=== PATIENT | female | born 1975 | race Caucasian/White ===

== ENCOUNTER → 2016-11-11 | Outpatient (CLI) | payer BC ==
[~2016-11-11] MED LIST: ASPCH81; ATOR-22 PO; EYED OPB; MISCCAP80 PO; MULT-506 PO; OMEG10007 PO; PRLSR20 PO; VITAMIN B12 PO
== END | disposition home or self-care (01) ==
LOC: C.PAPS 14:09
PROVIDERS: ATTEND Obstetrics & Gynecology
DX: Z01.419 Encounter for gynecological examination (general) (routine) without abnormal findings (principal)

== ENCOUNTER → 2016-11-23 | Outpatient (CLI) | payer BC ==
[~2016-11-23] MED LIST changes: -ATOR-22 PO; -EYED OPB; -MISCCAP80 PO; -OMEG10007 PO; -VITAMIN B12 PO
== END | disposition home or self-care (01) ==
LOC: C.PATHSPEC 16:38
PROVIDERS: ATTEND Obstetrics & Gynecology
DX: N90.89 Other specified noninflammatory disorders of vulva and perineum (principal)

== ENCOUNTER → 2017-01-25 | Outpatient (CLI) | payer BC ==
[~2017-01-25] MED LIST changes: +ATOR-22 PO; +EYED OPB; +MISCCAP80 PO; +OMEG10007 PO; +VITAMIN B12 PO
--- NOTE | 2017-01-26 14:19 | MAMMOGRAPHY REPORT ---
BILATERAL DIGITAL SCREENING MAMMOGRAM TOMOSYNTHESIS WITH CAD: 01/25/2017 CLINICAL HISTORY: Routine screening. Patient has no complaints. TECHNIQUE: Breast tomosynthesis in addition to standard 2D mammography was performed. Current study was also evaluated with a Computer Aided Detection (CAD) system. COMPARISON: Comparison is made to exam dated: 01/22/2016 mammogram - [facility]. BREAST COMPOSITION: There are scattered areas of fibroglandular density in both breasts. FINDINGS: There is a newly visualized 5 mm mass in the lateral anterior right breast, only seen on t he CC view. Although it could represent a cyst, definitive characterization with targeted ultrasound and possible additional mammographic views is recommended. No other new suspicious mass, architectural distortion or cluster of microcalcifications is seen bila terally. IMPRESSION: ACR BI-RADS CATEGORY 0: INCOMPLETE EVALUATION: NEED ADDITIONAL IMAGING EVALUATION The newly visualized 5 mm mass in the lateral right breast needs additional evaluation. The patient will be called to schedule an appointment. Approximately 10% of breast cancers are not detected with mammography. A negative mammographic report should not delay biopsy if a clinically suggestive mass is present. Abi Valdez M.D. ay/:01/25/2017 17:28:14 Log Peeler: Juliana MELARA)(Annie), [facility] letter sent: Addl Imaging 0 BI-RADS Code: ACR BI-RADS Category 0: Incomplete Evaluation: Need Additional Imaging Evaluation
== END | disposition home or self-care (01) ==
LOC: C.MAMM 09:05
PROVIDERS: ATTEND Obstetrics & Gynecology
DX: Z12.31 Encounter for screening mammogram for malignant neoplasm of breast (principal); N63 Unspecified lump in breast

== ENCOUNTER → 2017-02-01 | Outpatient (CLI) | payer BC ==
[2017-02-01 17:44] LABS: BASO % 0.4 %; BASO ABS # 0.02 K/uL (0-0.2); COMPLETE YES; EOS % 3.3 %; HEMATOCRIT 41.1 % (37-47); IG% 0.2 %; LYMPH % 19.4 %; LYMPH ABS # 0.88 K/uL (1.2-3.4); MEAN CELL VOLUME 89.5 fL (80-100); MEAN CORPUSCULAR HEMOGLOBIN 30.1 pg (25-34); MEAN CORPUSCULAR HGB CONC 33.6 g/dl (32-36); MEAN PLATELET VOLUME 10.2 fL (7.4-10.4); MONO % 7.9 %; NEUT % 68.8 %; PLATELET COUNT 211 K/uL (130-400); RED BLOOD COUNT 4.59 M/uL (4.2-5.4); WHITE BLOOD COUNT 4.54 K/uL (4.8-10.8)
[2017-02-01 18:13] LABS: ALT/SGPT 30 U/L (12-78); AST/SGOT 18 U/L (15-37); BLOOD UREA NITROGEN 11 mg/dl (7-18); BUN/CREATININE RATIO 18.7 (10-20); CALCIUM 8.9 mg/dl (8.5-10.1); CARBON DIOXIDE 27 mmol/L (21-32); CHLORIDE 106 mmol/L (98-107); CREATININE 0.58 mg/dl (0.60-1.20); GLUCOSE 94 mg/dl (70-99); POTASSIUM 3.7 mmol/L (3.5-5.1); SODIUM 139 mmol/L (136-145)
[2017-02-01 18:16] LABS: ALB/GLOB RATIO 1.1 (0.9-2); ALKALINE PHOSPHATASE 53 U/L (45-117)
[2017-02-01 19:28] LABS: LYME DISEASE AB IGG NEG (NEG); LYME DISEASE AB IGM NEG (NEG)
== END | disposition home or self-care (01) ==
LOC: C.LABBFT 11:55
PROVIDERS: ATTEND Internal Medicine
DX: R50.9 Fever, unspecified (principal); R21 Rash and other nonspecific skin eruption

== ENCOUNTER → 2017-02-02 | Outpatient (CLI) | payer BC ==
--- NOTE | 2017-02-02 12:56 | Discharge Instructions ---
Discharge Instructions Procedure Procedure Date: Feb 02, 2017. Reason for visit: Right Mass. Discharge Discharge Date: Feb 02, 2017. Discharge Diagnosis: status post breast biopsy Instructions Activity Recommendations: Additional Limitations (see below) Return to School/Work: no limitations Recommended Home Diet: No Limitations Provider Instructions: ACTIVITY RECOMMENDATIONS: * No lifting, pushing, pulling or exercising the affected side for three days. RETURN TO SCHOOL/WORK: * You may return to work/school after the procedure, but do not perform any strenuous activities for 24 to 48 hours. MEDICATIONS: * Tylenol (two 325 mg) every four to six hours if needed for mild pain (if not allergic to Tylenol). DIET: * Resume previous diet. SPECIAL CARE INSTRUCTIONS: * Keep biopsy site dry for 24 hours. May shower after 24 hours, but do not soak (bathe) incision. * May remove Tegaderm (plastic patch) tomorrow AFTER showering. * Leave the steri-strips on for one week. Allow the steri-strips to fall off by themselves. If not off after one week, you may remove them. You may place a Bandaid crosswise over the strips, if desired. * Apply ice 10 minutes on and 10 minutes off as needed. * Wear a bra at bedtime to sleep more comfortably for 2-3 days. * Your referring physician should have the results after approximately 5 to 7 business days. * Call for unusual bleeding, fever, drainage, etc or if you have any questions call during normal business hours or after hours call Dr Parra, [phone]. FOLLOW UP VISIT: Follow-up with Referring Physician as scheduled. Allergies Coded Allergies: Iodinated Contrast Media (Verified Allergy, Unknown, SWELLING AROUND EYES , 02/12/15) Kristina Beltran Recommendations: Call your doctor if: * Temperature above 101 degrees * Pain not relieved by pain medicine ordered * There is increased drainage or redness from any incision * You have any unanswered questions or concerns. Your Doctors Instructions noted above were prepared by provider Lisette Parra. Patient Signature Section: Patient Instructions Signature Page Dayana Newton Patient (or Guardian) Signature/Date: I have read and understand the instructions given to me by my caregivers. Caregiver/RN/Doctor Signature/Date: The above-named patient and/or guardian has received patient instructions on this date. + Original Patient Signature Page (only) stays with chart. Please make copy for patient.
--- NOTE | 2017-02-02 15:18 | MAMMOGRAPHY REPORT ---
UNILATERAL RIGHT DIGITAL DIAGNOSTIC MAMMOGRAM TOMOSYNTHESIS: 02/02/2017 CLINICAL HISTORY: Status post ultrasound guided biopsy of a right 9:00 breast mass. TECHNIQUE: Breast tomosynthesis in addition to standard 2D mammography was performed. Postprocedura l right CC and ML views were obtained. COMPARISON: Comparison is made to exams dated: 02/02/2017 ultrasound, 01/25/2017 mammogram, and 01/22/20 16 mammogram - [facility]. BREAST COMPOSITION: There are scattered areas of fibroglandular density in the right breast. FINDINGS: A new biopsy marker clip is seen at the site of the biopsied mass in the right lateral louis ast at approximately 9:00. No significant postbiopsy hematoma is seen. IMPRESSION: POST PROCEDURE IMAGING FOR MARKER PLACEMENT New biopsy marker clip status post right breast ultrasound-guided biopsy. Pathology results are pend ing. Approximately 10% of breast cancers are not detected with mammography. A negative mammographic report should not delay biopsy if a clinically suggestive mass is present. Lisette Parra M.D. ah/:02/02/2017 13:03:39 Document Control Coordinator: Juliana MOJICA(R)(M), [facility] BI-RADS Code: Post Procedure Imaging For Marker Placement
--- NOTE | 2017-02-02 15:18 | MAMMOGRAPHY REPORT ---
THIS REPORT HAS BEEN AMENDED. ULTRASOUND GUIDED BIOPSY RIGHT BREAST: 02/02/2017 CLINICAL HISTORY: Right 9 o'clock breast mass. PATIENT CONSENT: The procedure, risks and benefits were discussed with the patient and informed writt en consent was obtained. A timeout was performed immediately prior to the procedure. PROCEDURE DESCRIPTION: With ultrasound guidance, aseptic technique, and lidocaine as the local anesth etic (1% lidocaine to anesthetize the skin and 1% lidocaine with epinephrine to anesthetize the deepe r tissues), the mass of concern in the right 9:00 breast was sampled 3 times with a 14-gauge Achieve biopsy needle. Immediately thereafter, with ultrasound guidance, aseptic technique, and lidocaine as the local anesthetic, a metallic localizer clip was placed at the biopsy site. Direct pressure was applied to the site immediately post procedure and hemostasis was achieved. Postprocedure unilateral mammograms were performed to confirm placement of the clip in the expected location of the breast ma ss. The patient tolerated the procedure without complication. She was given wound care instructions . The specimens were sent to pathology for analysis. COMPARISON: Comparison is made to exams dated: 02/02/2017 ultrasound, 01/25/2017 mammogram, and 01/22/20 16 mammogram - [facility]. IMPRESSION: ULTRASOUND GUIDED BIOPSY Ultrasound guided core needle biopsy of the right 9:00 breast mass, with clip placement. The patient will receive pathology results from her referring provider. Lisette Parra M.D. ah/:02/02/2017 12:58:55 Synthetic Filament Extruder: Juliana MELARA)(Annie), [facility] AMENDMENT: 02/09/2017 Lisette Parra M.D. Pathology results from ultrasound-guided biopsy of a right 9:00 breast mass were reviewed on 7. 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 As it is controversial whether papillomas without atypia should be excised, recommend surgic al consultation for further evaluation.
== END | disposition home or self-care (01) ==
LOC: C.MAMM 12:30
PROVIDERS: ATTEND Obstetrics & Gynecology
DX: N63 Unspecified lump in breast (principal); D24.1 Benign neoplasm of right breast

== ENCOUNTER → 2017-02-02 | Outpatient (CLI) | payer BC ==
--- NOTE | 2017-02-08 09:07 | MAMMOGRAPHY REPORT ---
ULTRASOUND OF RIGHT BREAST: 02/02/2017 CLINICAL HISTORY: 41-year-old woman called back from screening mammography for a newly visualized non -circumscribed 5 mm mass in the lateral anterior right breast. COMPARISON: Comparison is made to exams dated: 01/22/2016 mammogram and 01/25/2017 mammogram - [facility]. FINDINGS: Targeted ultrasound was performed in the lateral right breast. In the 9:00 to 9:30 axis, 1 cm from the nipple, there is a mixed hypoechoic and anechoic solid and cystic but predominantly cys tic mass measuring 5.3 x 3.3 x 5.0 mm.. Mild internal blood flow is detected. Although this most li lauren represents a microcyst cluster or, located cyst, definitive characterization with tissue samplin g is recommended to exclude a papillary lesion. This mass correlates well with the newly visualized mammographic mass in size, shape and location. IMPRESSION: ACR BI-RADS CATEGORY 4: SUSPICIOUS - FOLLOW-UP RECOMMENDED Ultrasound-guided core biopsy is recommended for a mixed solid and cystic 5.3 mm mass in the 9:00 rig ht breast, thought to correlate with the newly visualized mammographic mass. These results and recommendations were discussed with the patient at the time of the exam. She tenta tively scheduled the biopsy prior to leaving our department. Abi Valdez M.D. ay/:02/02/2017 11:00:33 Electronic Publishing Specialist: Dr. Abi Valdez, [facility] letter sent: Abnormal 4/5 BI-RADS Code: ACR BI-RADS Category 4: Suspicious
== END | disposition home or self-care (01) ==
LOC: C.MAMM 09:12
PROVIDERS: ATTEND Obstetrics & Gynecology
DX: N63 Unspecified lump in breast (principal)

== ENCOUNTER → 2017-03-01 | Day surgery (SDC) | payer BC ==
[2017-02-22 09:15] VITALS: Ht 167.6 cm; Wt 84.1 kg
[~2017-03-01] VITALS: Ht 167.6 cm; Wt 84.1 kg
[~2017-03-01] MED LIST changes: -ASPCH81; +ATROPINE SULFATE 0.1 MG/ML 5ML SYR IV PRN; +CEFAZOLIN 2000 MG/60 ML D5W IV SCH; +DEXAMETHASONE SOD INJ 4 MG/ML VIAL ONE; +EpHEDrine SULFATE INJ 50 MG/ML AMP IV PRN; +FENTANYL CITRATE INJ 50 MCG/1 ML 2 ML VIAL IV PRN; +FENTANYL CITRATE INJ 50 MCG/1 ML 2 ML VIAL ONE; +GLYCOPYRROLATE INJ 0.2 MG/ML VIAL ONE; +HYDR-5688 PO; +HYDROCODONE/ACETAMOPHEN 5/325MG TAB PO PRN; +LACTATED RINGER'S 1000ML 1,000 ML IV SCH; +LIDOCAINE HCL 1% 20 ML VIAL ONE; +LIDOCAINE HCL 2% 2 ML VIAL (20MG/ML) ONE; +MIDAZOLAM HCL 1 MG/ML 2ML VIAL ONE; +ONDANSETRON INJ 2 MG/ML 2 ML VIAL IV PRN; +ONDANSETRON INJ 2 MG/ML 2 ML VIAL ONE; -PRLSR20 PO; +PROPOFOL IV EMULSION 10 MG/ML 20 ML VIAL IV ONE; +SODIUM CHLORIDE 0.9% 1000ML 1,000 ML IV SCH
--- NOTE | 2017-03-01 11:52 | History & Physical Bridge Note ---
H&P Re-Evaluation Bridge Note: I have examined the patient, reviewed the History & Physical and in the interval since the performance of the History & Physical I have noted the following changes of clinical significance: No changes noted
--- NOTE | 2017-03-01 12:50 | [facility] Operative Report ---
Operative Report Operative Date Mar 01, 2017. Pre-Operative Diagnosis Right breast papilloma Post-Operative Diagnosis Same as preop Procedure(s) Performed Right Breast Papilloma Excision With Needle Localization Surgeon Dr. Chiu Mine Environmental Engineer Surgeon(s) Wilbert Tijerina PA-C Estimated Blood Loss 5 mL Findings Rt brreast tissue with clip Specimens A: Right breast papilloma Anesthesia gen/LMA Complication(s) None Disposition Recovery Room / PACU I attest to the content of the Intraoperative Record and any orders documented therein. Any exceptions are noted below.
--- NOTE | 2017-03-01 12:54 | Discharge Instructions-SurgCtr ---
Discharge Instructions Date of Service Mar 01, 2017. Visit Reason for Visit: Right Breast Papilloma Discharge Discharge Diagnosis / Problem: papilloma Rt breast Discharge Goals Goal(s): Decrease discomfort, Improve function, Improve disease control Activity Recommendations Activity Limitations: as noted below Lifting Limitations: no more than 25 pounds, gradually increase as tolerated Exercise/Sports Limitations: until after follow-up appointment May Resume Sexual Activity: when tolerated Shower/Bathe: keep incision dry (may shower over incision in 2 days- 03/03 ) Driving or Machine Use: resume 1 day after discharge SPECIAL CARE INSTRUCTIONS: * Cover incisions and change daily for comfort/drainage. * Leave steri strips in place * May use ibuprofen for pain as tolerated. * Expect some swelling and bruising. Call your doctor if: * Temperature above 101 degrees * Pain not relieved by pain medicine ordered * There is increased drainage or redness from any incision * You have any unanswered questions or concerns [phone]. FOLLOW UP VISIT: If not already scheduled, please call the office for a follow-up visit. for 2 weeks- no sutures to remove OFFICE PHONE NUMBER: Dr. Chiu Office Anesthesia . Post Anesthesia Instructions: If you have had General Anesthesia or IV Sedation: * Do not drive today. * Resume driving when surgeon permits. * Do not make important decisions or sign legal documents today. * Call surgeon for: 1. Temperature elevations greater than 101 degrees F. 2. Uncontrollable pain. 3. Excessive bleeding. 4. Persistent nausea and vomiting. 5. Medication intolerance (nausea, vomiting or rash). * For nausea and vomiting use only clear liquids such as: tea, soda, bouillon until nausea subsides, then gradually increase diet as tolerated. * If you have any concerns or questions, call your surgeon's office. If physician is unavailable and it is an emergency, call 911 or go to the nearest emergency room. . Diet Recommendations Home Diet: resume previous diet Procedures Procedures Performed: Right Breast Papilloma Excision With Needle Localization Pending Studies Studies pending at discharge: no Medical Emergencies . Who to Call and When: Medical Emergencies: If at any time you feel your situation is an emergency, please call 911 immediately. . Non-Emergent Contact Non-Emergency issues call your: Primary Care Provider, Surgeon . . "Provider Documentation" section prepared by Hebert Chiu. .
--- NOTE | 2017-03-01 13:05 | OPERATIVE REPORT ---
DATE OF OPERATION: 03/01/2017 NAME OF OPERATION: Needle localization and excision of right breast papilloma. PREOPERATIVE DIAGNOSIS: Right breast papilloma. POSTOPERATIVE DIAGNOSIS: Same. STAFF SURGEON: Dr. Chiu. PUBLIC HEALTH DOCTOR: Wilbert Tijerina PA-C. ANESTHESIA: General LMA with 1% plain lidocaine. PROCEDURE: The patient was brought in the operating room and placed on the operating table in supine position. A needle was placed at approximately 10:00 laterally in the right breast. Skin and subcutaneous tissue were anesthetized using 1% plain lidocaine. Incision made at the needle and medially carrying dissection down around the needle excising the tissue sending it for mammography. A clip was within this tissue. Deep tissue was reapproximated using 2-0 plain catgut suture then the skin reapproximated using subcuticular 5-0 Monocryl with Steri-Strips. Dressing applied and patient transferred to recovery room in stable condition. I attest to the content of the Intraoperative Record and any orders documented therein. Any exception s are noted below.
[2017-03-01 13:40] VITALS: TEMP 36.4
[2017-03-01 13:56] VITALS: BP 116/77; PULSE 57; O2SAT 100
--- NOTE | 2017-03-01 14:04 | Anesthesiology Progress Note ---
Anesthesia Post Op Note Date & Time Mar 01, 2017 at 14:04 Vital Signs Pain Intensity: 1 Vital Signs Past 12 Hours Date Time Temp Pulse Resp B/P (MAP) Pulse Ox O2 Delivery O2 Flow Rate FiO2 03/01/17 13:56 57 16 116/77 (90) 100 Room Air 03/01/17 13:40 36.4 59 16 115/85 (95) 100 Room Air 03/01/17 13:30 120/78 03/01/17 13:28 36.7 46 14 120/78 100 Room Air 03/01/17 13:27 50 21 100 03/01/17 13:27 49 21 03/01/17 13:25 122/76 03/01/17 13:22 50 18 03/01/17 13:22 52 18 100 03/01/17 13:20 114/83 03/01/17 13:17 52 13 03/01/17 13:17 50 13 100 03/01/17 13:15 118/86 03/01/17 13:12 49 14 03/01/17 13:12 48 14 100 03/01/17 13:10 118/72 03/01/17 13:07 62 14 100 03/01/17 13:07 56 14 03/01/17 13:05 117/67 03/01/17 13:02 54 22 100 03/01/17 13:02 56 22 03/01/17 13:00 112/63 03/01/17 12:58 126/66 03/01/17 12:57 59 100 03/01/17 12:57 36.4 56 12 126/66 100 Mask 6 03/01/17 12:57 59 03/01/17 10:40 37.0 61 16 133/81 (98) 100 Room Air Notes Mental Status: alert / awake / arousable, participated in evaluation Pt Amnestic to Procedure: Yes Nausea / Vomiting: adequately controlled Pain: adequately controlled Airway Patency, RR, SpO2: stable & adequate BP & HR: stable & adequate Hydration State: stable & adequate Anesthetic Complications: no major complications apparent
--- NOTE | 2017-03-01 15:20 | MAMMOGRAPHY REPORT ---
NEEDLE LOCALIZATION RIGHT BREAST: 03/01/2017 CLINICAL HISTORY: Biopsy-proven papilloma in the 9:00 right breast. Patient presents for preoperativ e localization for surgical excision. COMPARISON: Comparison is made to exams dated: 02/02/2017 mammogram, 02/02/2017 ultrasound biopsy, 01/15 ultrasound, 01/25/2017 mammogram, and 01/22/2016 mammogram - [facility]. PATIENT CONSENT: The risks of the procedure were explained to the patient and informed consent was ob tained. The patient denied taking anything this morning that would preclude anesthesia. She also de nied allergy to lidocaine. We discussed attempting to visualize this biopsied mass with ultrasound f or possible ultrasound-guided localization but if it was not definitively identified on ultrasound ma mmographic guided localization will be performed. PROCEDURE DESCRIPTION: Initially, repeat targeted ultrasound was performed in the 9:00 right breast, 1 cm from the nipple. The mass is not clearly identified, nor is the ribbon-shaped biopsy marker cli p. Therefore, we'll proceed with mammographic guided preoperative localization. Post procedure mammograms dated 02/02/2017 were reviewed. The ribbon-shaped biopsy marker clip in e 9:00 right breast is the intended target for preoperative localization. With the patient in the se ated position, the right breast was placed in lateralmedial compression. 1% buffered Lidocaine witho ut epinephrine was administered as local anesthesia. A 3cm Story II needle and wire combination was inserted into the breast. Optimal positioning was confirmed and the wire was locked in place, leavin g both the needle and wire within the breast, as per surgeon's preference. The entire procedure incl uding approach and needle length were discussed with the operating surgeon prior to surgery. The pat ient tolerated the procedure well and there was no immediate complication. She was transferred to [facility] [place] operating room in satisfactory condition. The specimen radiograph demonstrates the localizing needle and wire as well as the ribbon-shaped biop sy marker clip within the tissue, compatible with successful preoperative localization and subsequent surgical excision. IMPRESSION: NEEDLE LOCALIZATION Status post preoperative needle and wire localization for a biopsy-proven papilloma in the 9:00 anter ior right breast. The imaged specimen includes the intended abnormality. The patient will receive the final pathology results from her referring physician. Abi Valdez M.D. ay/:03/01/2017 13:38:55 Electrical Instrument Maker: Winnie MOJICA(R)(M), [facility]
== END | disposition home or self-care (01) ==
LOC: X.SURG 10:24
PROVIDERS: ATTEND Surgery
DX: N63.10 Unspecified lump in the right breast, unspecified quadrant (principal); R92.0 Mammographic microcalcification found on diagnostic imaging of breast

== ENCOUNTER → 2017-06-03 | Outpatient (CLI) | payer OTHER ==
[~2017-06-03] MED LIST changes: -ATROPINE SULFATE 0.1 MG/ML 5ML SYR IV PRN; -CEFAZOLIN 2000 MG/60 ML D5W IV SCH; -DEXAMETHASONE SOD INJ 4 MG/ML VIAL ONE; -EpHEDrine SULFATE INJ 50 MG/ML AMP IV PRN; -FENTANYL CITRATE INJ 50 MCG/1 ML 2 ML VIAL IV PRN; -FENTANYL CITRATE INJ 50 MCG/1 ML 2 ML VIAL ONE; -GLYCOPYRROLATE INJ 0.2 MG/ML VIAL ONE; -HYDROCODONE/ACETAMOPHEN 5/325MG TAB PO PRN; -LACTATED RINGER'S 1000ML 1,000 ML IV SCH; -LIDOCAINE HCL 1% 20 ML VIAL ONE; -LIDOCAINE HCL 2% 2 ML VIAL (20MG/ML) ONE; -MIDAZOLAM HCL 1 MG/ML 2ML VIAL ONE; -ONDANSETRON INJ 2 MG/ML 2 ML VIAL IV PRN; -ONDANSETRON INJ 2 MG/ML 2 ML VIAL ONE; -PROPOFOL IV EMULSION 10 MG/ML 20 ML VIAL IV ONE; -SODIUM CHLORIDE 0.9% 1000ML 1,000 ML IV SCH
[2017-06-03 10:56] LABS: BASO % 0.4 %; BASO ABS # 0.02 K/uL (0-0.2); EOS % 4.7 %; EOS ABS # 0.24 K/uL (0-0.5); HEMATOCRIT 42.2 % (37-47); HEMOGLOBIN 14.3 g/dL (12.0-16.0); IG# 0.01 K/uL (0.00-0.02); LYMPH % 31.4 %; LYMPH ABS # 1.61 K/uL (1.2-3.4); MEAN CELL VOLUME 90.4 fL (80-100); MEAN CORPUSCULAR HEMOGLOBIN 30.6 pg (25-34); MEAN CORPUSCULAR HGB CONC 33.9 g/dl (32-36); MEAN PLATELET VOLUME 9.8 fL (7.4-10.4); MONO % 6.8 %; MONO ABS # 0.35 K/uL (0.11-0.59); NEUT % 56.5 %; PLATELET COUNT 226 K/uL (130-400); RED CELL DISTRIBUTION WIDTH CV 13.4 % (11.5-14.5); RED CELL DISTRIBUTION WIDTH SD 44.3 fL (36.4-46.3); WHITE BLOOD COUNT 5.13 K/uL (4.8-10.8)
[2017-06-03 11:25] LABS: HEMOGLOBIN A1C 5.6 % (4.5-5.6)
[2017-06-03 11:31] LABS: ALBUMIN 3.7 gm/dl (3.4-5.0); ALT/SGPT 47 U/L (12-78); AST/SGOT 24 U/L (15-37); BLOOD UREA NITROGEN 7 mg/dl (7-18); CALCIUM 8.2 mg/dl (8.5-10.1); CARBON DIOXIDE 29 mmol/L (21-32); CREATININE 0.61 mg/dl (0.60-1.20); GLUCOSE 109 mg/dl (70-99); POTASSIUM 3.7 mmol/L (3.5-5.1); SODIUM 138 mmol/L (136-145)
[2017-06-03 11:54] LABS: ALKALINE PHOSPHATASE 48 U/L (45-117); CHOLESTEROL 183 mg/dl (0-200); LDL CHOLESTEROL CALCULATED 112 mg/dl; TOTAL PROTEIN 7.2 gm/dl (6.4-8.2)
== END | disposition home or self-care (01) ==
LOC: C.LABBC 08:58
PROVIDERS: ATTEND Physician Assistant Medical
DX: E78.00 Pure hypercholesterolemia, unspecified (principal); R73.01 Impaired fasting glucose

== ENCOUNTER → 2017-06-23 | Outpatient (CLI) | payer OTHER | END | disposition home or self-care (01) | LOC: C.LABSPEC 11:21 | PROVIDERS: ATTEND Nurse Practitioner | DX: J02.9 Acute pharyngitis, unspecified (principal) ==